=== PATIENT | male | born 1975 | race Two or more races ===

== ENCOUNTER 2017-11-22 04:55 | Emergency (ER) | payer OTHER ==
[~2017-11-22] VITALS: Ht 180.3 cm; Wt 81.6 kg
[~2017-11-22 04:55] MED LIST: IBUPROFEN800 MG PO; KLONOPIN0.125 MG/T; LEXAPRO5 MG; SEPTRA DS TABLE1 TAB PO; TRAMADOL HCL-1 UDTAB; [UNRECOGNIZED DRUG - OTHER]
[2017-11-22] MEDS ORDERED: [UNRECOGNIZED DRUG - OTHER] PO (13:59)
[2017-11-22] MEDS ORDERED: ALLEGRA ALLERG180 MG PO (13:59)
== END 2017-11-22 14:24 | disposition home or self-care (01) ==
LOC: ER 04:55
DX: T78.49XA Other allergy, initial encounter (principal); R21 Rash and other nonspecific skin eruption

== ENCOUNTER 2020-11-23 14:37 | Emergency (ER) | payer OTHER ==
[~2020-11-23] VITALS: Ht 182.9 cm; Wt 79.4 kg
[~2020-11-23 14:37] MED LIST changes: +ALLEGRA ALLERG180 MG PO; +[UNRECOGNIZED DRUG - OTHER] PO
[2020-11-23] MEDS ORDERED: LEXAPRO5 MG (15:10)
[2020-11-23] MEDS ORDERED: BUSPIRONE HCL10 MG (15:10)
[2020-11-23] MEDS ORDERED: RISPERDAL0.5 MG (15:10)
== END 2020-11-23 23:56 | disposition home or self-care (01) ==
LOC: ER 14:37
DX: B20 Human immunodeficiency virus [HIV] disease (principal); D63.8 Anemia in other chronic diseases classified elsewhere; C81.78 Other Hodgkin lymphoma, lymph nodes of multiple sites; J91.8 Pleural effusion in other conditions classified elsewhere; Z20.822 Contact with and (suspected) exposure to COVID-19

== ENCOUNTER 2021-02-07 07:13 | Emergency (ER) | payer OTHER ==
[~2021-02-07] VITALS: Ht 182.9 cm; Wt 86.2 kg
[~2021-02-07 07:13] MED LIST changes: +BUSPIRONE HCL10 MG; +RISPERDAL0.5 MG
== END 2021-02-07 13:00 | disposition home or self-care (01) ==
LOC: ER 07:13
DX: C81.90 Hodgkin lymphoma, unspecified, unspecified site (principal); L02.31 Cutaneous abscess of buttock; Z21 Asymptomatic human immunodeficiency virus [HIV] infection status